=== PATIENT | male | born 1950 | race Caucasian/White ===

== ENCOUNTER 2016-06-29 09:14 | Inpatient (IN) ==
[2016-06-29] MEDS ORDERED: *HR* OxyCODONE/APAP 10/325 TABLET PO PRN (14:07)
[2016-06-29] MEDS ORDERED: ALPRAZolam 0.5 MG TABLET PO PRN (14:07)
[2016-06-29] MEDS ORDERED: (Roflumilast [Daliresp] 500 MCG) PO SCH (14:15)
[2016-06-29] MEDS ORDERED: *HR* Digoxin 0.25 MG TABLET PO SCH (14:15)
[2016-06-29] MEDS ORDERED: Nitroglycerin 0.4 MG TAB.SUBL SL PRN (14:15)
--- NOTE | 2016-06-29 14:19 | History & Physical Report ---
Date of Encounter: 06/29/16 Time of Encounter: 14:00 24 Hour HP Update - Instructions Instructions: If the History and Physical is less than 30 days old and was completed prior to A.M. admission and or procedure and has NOT been updated on calendar day of procedure please complete this update prior to performing procedure. - Update Patient reports changes in Medical Condition: No Changes in examination, assessment, or condition: No Changes in Medication: No Additions to current History and Physical: Presented for antiarrhythmic therapy initiation - Pre-Operative Checklist Home Medications Include Beta Sima: Yes Beta Sima Taken Today (Day of Surgery): No - Attending Attestation Please see OV note by Dr. Shawn Moreno on 06/21/16 for H&P.Presents for sotalol therapy. Discussed with Dr. Macario Gonzalez. Start sotalol 40 mg q12 hr. Hold metoprolol d/t HR in the 50's at times.
[2016-06-29] MEDS ORDERED: Naloxone 0.4 MG/ML INJ IVP PRN (14:20)
[2016-06-29 15:33] LABS: BUN/Creatinine Ratio 11 (6-26); Blood Urea Nitrogen 11 mg/dL (8-26); Calcium 9.2 mg/dL (8.6-10.8); Carbon Dioxide 30 mEq/L (19-29); Chloride 97 mEq/L (98-109); Glucose 289 mg/dL (70-99); Osmolality,Calculated 290 (280-300); Potassium 4.2 mEq/L (3.5-4.5); Sodium 135 mEq/L (136-145); eGFR For African Americans > 60 (> 60); eGFR For Non-African Americans > 60 (> 60)
[2016-06-29] MEDS ORDERED: Dextrose Gel 15 GM PO PRN ×2 (16:13)
[2016-06-29] MEDS ORDERED: D5% in Water 1,000 ML IVC PRN (16:13)
[2016-06-29] MEDS ORDERED: *HR* Dextrose 50 % in Water (Syg) 50 ML SYRINGE IVP PRN (16:13)
[2016-06-29] MEDS: *HR* Metformin 500 MG TABLET PO SCH (16:41)
[2016-06-29] MEDS: *HR* SitaGLIPtin 100 MG TABLET PO SCH (16:41)
[2016-06-29] MEDS: Furosemide 40 MG TABLET PO SCH (16:42)
[2016-06-29] MEDS: Aspirin Enteric Coated 81 MG Tablet PO SCH (16:42)
[2016-06-29] MEDS: Finasteride 5 MG TABLET PO SCH (16:42)
[2016-06-29] MEDS: *HR* Rivaroxaban 10 MG TABLET PO SCH (16:42)
[2016-06-29] MEDS: Gabapentin 300 MG CAPSULE PO SCH ×2 (16:42→22:06)
[2016-06-29] MEDS: Celecoxib 200 MG CAPSULE PO SCH ×2 (16:43→22:06)
[2016-06-29] MEDS: Ranolazine 500 MG TAB.ER.12H PO SCH ×2 (16:43→22:06)
[2016-06-29] MEDS: Ipratropium/Albuterol Neb 3 ML IH SCH ×3 (16:54→23:32)
[2016-06-29] MEDS: (Umeclidinium Bromide [Incruse Ellipta] 1 PUFF) IH SCH (17:06)
[2016-06-29 17:41] LABS: Bilirubin,Urine Negative (Negative); Blood,Urine Trace (Negative); Clarity,Urine Clear (Clear); Color,Urine Yellow (Yellow); Glucose,Urine (UA) >=1000 mg/dL (Normal); Ketones,Urine Negative (Negative); Leukocyte Esterase,Urine Negative (Negative); Nitrite,Urine Negative (Negative); Protein,Urine Negative (Neg-Trace); Specific Gravity,Urine 1.022 (1.010-1.025); Urobilinogen,Urine Normal (Normal)
[2016-06-29 17:43] LABS: Bacteria,Urine None Seen per hpf (None-Few); Hyaline Casts,Urine None Seen per lpf (None-Few); Squamous Epithelial Cell,Urine Moderate per lpf (None-Few); WBC,Urine 0-3 per hpf (0-3)
[2016-06-29] MEDS: Fluticasone Propionate Nasal 50 MCG/SPRAY BOTTLE NS SCH ×2 (19:50→22:07)
[2016-06-29] MEDS: Budesonide/Formoterol 160/4.5 MDI IH SCH (19:56)
[2016-06-29] MEDS: Insulin DETEMIR 100 UNIT/ML X5UNITS SQ SCH (22:06)
[2016-06-30] MEDS: Ipratropium/Albuterol Neb 3 ML IH SCH ×5 (03:52→19:45)
[2016-06-30] MEDS: Budesonide/Formoterol 160/4.5 MDI IH SCH ×2 (07:52→19:45)
[2016-06-30] MEDS: Furosemide 40 MG TABLET PO SCH (08:14)
[2016-06-30] MEDS: Ranolazine 500 MG TAB.ER.12H PO SCH ×2 (08:14→21:36)
[2016-06-30] MEDS: Gabapentin 300 MG CAPSULE PO SCH ×3 (08:14→21:41)
[2016-06-30] MEDS: Celecoxib 200 MG CAPSULE PO SCH ×2 (08:14→21:37)
[2016-06-30] MEDS: *HR* Rivaroxaban 10 MG TABLET PO SCH (08:14)
[2016-06-30] MEDS: Finasteride 5 MG TABLET PO SCH (08:14)
[2016-06-30] MEDS: *HR* Metformin 500 MG TABLET PO SCH ×2 (08:14→16:59)
[2016-06-30] MEDS: *HR* SitaGLIPtin 100 MG TABLET PO SCH (08:14)
[2016-06-30] MEDS: Aspirin Enteric Coated 81 MG Tablet PO SCH (08:14)
[2016-06-30] MEDS: (Umeclidinium Bromide [Incruse Ellipta] 1 PUFF) IH SCH (08:15)
[2016-06-30] MEDS: Fluticasone Propionate Nasal 50 MCG/SPRAY BOTTLE NS SCH ×2 (08:17→21:44)
[2016-06-30] MEDS ORDERED: (Roflumilast [Daliresp] 500 MCG) PO SCH (09:00)
[2016-06-30] MEDS: *HR* OxyCODONE/APAP 10/325 TABLET PO PRN ×2 (12:34→21:41)
--- NOTE | 2016-06-30 12:49 | Cardiology Progress Note ---
Date of Encounter: 06/30/16 Time of Encounter: 12:45 Assessment and Plan (1) PAF (paroxysmal atrial fibrillation) Current Visit: Yes Status: Acute Presented as direct admit for sotalol initiation by Dr. Macario Gonzalez. D/t occasional bradycardia seen, metoprolol and digoxin discontinued. Sotalol 40 mg BID started. Telemtry review shows NSR, Avg HR 83 bpm. One run of afib with slow ventricular response this morning. HR 40 bpm at that time. Currently HR in the 80's. Denies symptoms. Baseline EKG showed atrial fibrillation, HR 83 bpm, QT/QTc 36/402, QRS 117. AM EKG showed SR with non-specific t-wave abnormality. QT/QTC 397/429, [id number]. Received 2 doses. Plan for 5 monitored doses and discharge tomorrow evening if he remains in SR. He is currently on xarelto uninterrupted for one month. (2) CAD (coronary artery disease) Current Visit: No Status: Chronic S/p multiple PCI in the past. No cardiac symptoms currently. Most recent TTE 04/2016 LVEF 55-60%. Mildly dilated left ventricle. Not all segments were well visualized, but overall LV function appeared normal. Indeterminate diastolic function. Mildly dilated right ventricle with normal appearing function. . Moderate to severely dilated left atrium. Mild aortic regurgitation. No evidence of pulmonary hypertension identified. Continue asa, statin, and bb. Qualifiers: Coronary Disease-Associated Artery/Lesion type: [place] artery [place] vs. transplanted heart: [place] heart Associated angina: without angina Qualified Code(s): I25.10 - Atherosclerotic heart disease of [place] coronary artery without angina pectoris (3) Diabetes Current Visit: No Status: Chronic Continue home meds and hypoglycemia protocal. Qualifiers: Diabetes mellitus type: type 2 Diabetes mellitus complication status: without complication Diabetes mellitus intermediate insulin use: with intermediate teacher use Qualified Code(s): E11.9 - Type 2 diabetes mellitus without complications ; Z79.4 - retirement (current) use of insulin Discussion w patient/family: The assessment and plan as outlined above was discussed with the patient and/or family members who expressed understanding and agreement. All questions were answered. Thank you for involving us in the care of your patient. Please call with any questions. Subjective Principal diagnosis: PAF Interval history: No complaints. Resting comfortably in bed. Discussed right flank pain he c/o yesterday. He reports pain is chronic and he had it for over 20 years. Objective Vital Signs, Last 4 Hours Temp Pulse Resp BP Pulse Ox 06/30/16 12:30 84 131/76 06/30/16 11:59 98.0 F 89 17 96 06/30/16 11:39 83 06/30/16 10:59 17 93 General: Conversant, No Apparent Distress HEENT: Atraumatic, Normocephaly, Mucus Membranes Moist Neck: No JVD, Normal carotid pulses Cardiac: Reg Rate and Rhythm, Normal S1 and S2, No Murmur Lungs: Normal Breath Sounds, No Wheeze, Rales, Rhonchi Neuro: Alert and responsive, No focal deficits noted Abdomen: Soft, Non-Tender Skin: No rashes noted on visualized skin Musculoskeletal: No Chest Wall Tenderness Extremities: No Clubbing, No Cyanosis, No Edema, Normal Pulses, Other (BLE leg wraps in place) Results 06/29/16 15:12 Lab Results 06/29/16 06/29/16 15:12 17:33 Sodium 135 L Potassium 4.2 Chloride 97 L Carbon Dioxide 30 H BUN 11 Creatinine 0.99 Glucose 289 H Calcium 9.2 TSH 0.968 - EKG Interpretation EKG results cardiology: other (24 hour telemetry review shows NSR. one short episode of afib with slow ventricular response seen this morning. Avg HR 83 bpm. Min HR was 40 bpm at 0820 this morning. SB with PVC.) - VTE Reasons for not Prescribing Prophylaxis: Not indicated-Anticoagulated or INR therapeutic Consult Discharge Plan - Plan Referrals: Viridiana Garcia CNP [Primary Care Provider] - 07/09/16 8:45 am Jonny Armenta MD [Partnered Physician] - (cardiology office will call patient at home with an appointment)
--- NOTE | 2016-06-30 18:14 | Electrocardiograph Report ---
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
[2016-06-30] MEDS: Insulin DETEMIR 100 UNIT/ML X5UNITS SQ SCH (21:37)
[2016-06-30] MEDS: (Roflumilast [Daliresp] 500 MCG) PO SCH (21:44)
[2016-07-01] MEDS: Ipratropium/Albuterol Neb 3 ML IH SCH ×7 (00:02→22:28)
[2016-07-01] MEDS: *HR* Rivaroxaban 10 MG TABLET PO SCH (07:45)
[2016-07-01] MEDS: Aspirin Enteric Coated 81 MG Tablet PO SCH (07:45)
[2016-07-01] MEDS: Celecoxib 200 MG CAPSULE PO SCH ×2 (07:45→20:47)
[2016-07-01] MEDS: *HR* SitaGLIPtin 100 MG TABLET PO SCH (07:46)
[2016-07-01] MEDS: Furosemide 40 MG TABLET PO SCH (07:46)
[2016-07-01] MEDS: *HR* Metformin 500 MG TABLET PO SCH ×2 (07:46→17:10)
[2016-07-01] MEDS: Ranolazine 500 MG TAB.ER.12H PO SCH ×2 (07:46→20:47)
[2016-07-01] MEDS: Gabapentin 300 MG CAPSULE PO SCH ×3 (07:46→20:48)
[2016-07-01] MEDS: Finasteride 5 MG TABLET PO SCH (07:46)
[2016-07-01] MEDS: Fluticasone Propionate Nasal 50 MCG/SPRAY BOTTLE NS SCH ×2 (07:47→20:49)
[2016-07-01] MEDS: (Umeclidinium Bromide [Incruse Ellipta] 1 PUFF) IH SCH (07:49)
[2016-07-01] MEDS: Budesonide/Formoterol 160/4.5 MDI IH SCH ×2 (07:54→20:19)
[2016-07-01] MEDS: *HR* OxyCODONE/APAP 10/325 TABLET PO PRN (09:51)
--- NOTE | 2016-07-01 10:02 | Discharge Summary ---
Date of Encounter: 07/01/16 Time of Encounter: 09:55 - Discharge Diagnosis (1) PAF (paroxysmal atrial fibrillation) Priority: Primary Status: Acute Comments: Presented as direct admit for sotalol initiation by Dr. Macario Gonzalez. D/t occasional bradycardia seen, metoprolol and digoxin discontinued. Sotalol 40 mg BID started. Telemetry review shows NSR, Avg HR 85 bpm. No A-fib noted since yesterday morning. Currently HR in the 80's. Denies symptoms. Baseline EKG showed atrial fibrillation, HR 83 bpm, QT/QTc 36/402, QRS 117. AM EKG 06/30/16 showed SR QT/QTC 397/429, QRS 116. AM EKG 07/01/16 showed SR QT/QTc 388/418ms, QRS 107. Received 4 doses. Plan for 5 monitored doses and discharge this evening after 5th dose. He is currently on xarelto uninterrupted for one month. Follow-up as outpt in 2-3 weeks. (2) CAD (coronary artery disease) Priority: Primary Status: Chronic Comments: S/p multiple PCI in the past. No cardiac symptoms currently. Most recent TTE 04/2016 LVEF 55-60%. Mildly dilated left ventricle. Not all segments were well visualized, but overall LV function appeared normal. Indeterminate diastolic function. Mildly dilated right ventricle with normal appearing function. . Moderate to severely dilated left atrium. Mild aortic regurgitation. No evidence of pulmonary hypertension identified. Continue asa, statin, and bb. Qualifiers: Coronary Disease-Associated Artery/Lesion type: [place] artery [place] vs. transplanted heart: [place] heart Associated angina: without angina Qualified Code(s): I25.10 - Atherosclerotic heart disease of [place] coronary artery without angina pectoris - Discharge Medications Prescriptions: Sotalol [Betapace] 40 mg PO Q12H #30 tablet Home Medications: Albuterol Sulfate [Albuterol Inhaler] 2 puff IH Q4HR PRN 10/19/14 [History] Alprazolam [Xanax] 0.5 mg PO BID 10/19/14 [History] Aspirin Enteric Coated [Aspirin EC] 81 mg PO DAILY 10/19/14 [History] Docusate [Colace] 100 mg PO BID 10/19/14 [History] Dutasteride [Avodart] 0.5 mg PO DAILY 10/19/14 [History] Esomeprazole Magnesium [Nexium] 40 mg PO DAILY 10/19/14 [History] Gabapentin [Neurontin] 600 mg PO TID 10/19/14 [History] Ipratropium/Albuterol Neb [Duoneb] 3 ml IH Q4HR 10/19/14 [History] Lidocaine Jelly 2% 1 appl MM ONCE 10/19/14 [History] Metformin [Glucophage] 1,000 mg PO BIDWM 10/19/14 [History] Montelukast [Singulair] 10 mg PO DAILY 10/19/14 [History] Nitroglycerin 0.4 mg SL Q5MIN 10/19/14 [History] OxyCODONE/APAP 10/325 [Percocet 10/325] 1 mg PO Q6-8H PRN 10/19/14 [History] Roflumilast [Daliresp] 500 mcg PO DAILY 10/19/14 [History] Rosuvastatin [Crestor] 40 mg PO HS 10/19/14 [History] SitaGLIPtin [Januvia] 100 mg PO DAILY 10/19/14 [History] Celecoxib [Celebrex] 200 mg PO BID 08/30/15 [History] Ranolazine [Ranexa] 500 mg PO BID 08/30/15 [History] Fluticasone Propionate Nasal [Flonase] 1 spray NS BID 01/24/16 [History] Fluticasone/Salmeterol [Advair 500-50 Diskus] 1 puff IH BID 01/24/16 [History] Varenicline Tartrate [Chantix] 1 mg PO BID 01/24/16 [History] Cyclobenzaprine [Flexeril] 10 mg PO TID 06/29/16 [History] Furosemide [Lasix] 40 mg PO DAILY 06/29/16 [History] Insulin DETEMIR [Levemir Flextouch] 20 unit SQ HS 06/29/16 [History] Potassium Chloride [Klor-Con 10] 10 meq PO DAILY 06/29/16 [History] Rivaroxaban [Xarelto] 20 mg PO DAILY 06/29/16 [History] Umeclidinium [place] [Incruse Ellipta] 1 puff IH DAILY 06/29/16 [History] Sotalol [Betapace] 40 mg PO Q12H #30 tablet 07/01/16 [Rx] Allergies/Adverse Reactions: Allergies ciprofloxacin [From Cipro] Allergy (Verified 01/24/16 12:10) Hives levofloxacin [From Levaquin] Allergy (Verified 01/24/16 12:10) Blister sulfamethoxazole [From Bactrim] Allergy (Verified 01/24/16 12:10) Hives trimethoprim [From Bactrim] Allergy (Verified 01/24/16 12:10) Hives Procedures/tests Complete & Pending: Procedures Performed prior 72 hours Category Date Time Status ECG 12 lead ECG [ECG] AM 0600 Y 07/02/16 06:00 Ordered ECG 12 lead ECG [ECG] Routine Y 06/30/16 06:00 Completed ECG 12 lead ECG [ECG] Stat Y 06/29/16 11:56 Completed Date of admission: 06/29/16 11:27 Primary care physician: Viridiana Garcia CNP Consults: 06/29/16 17:05 Consult to Wound Care [CONS] Routine Reason for Consult: BLE leg wraps applied by wound care [facility] one week ago. Please help manage. Thanks Call Completed: No Discharging clinician: Jorge Bertrand Anticipated date of discharge: 07/01/16 - Patient Status Disposition: Home, Self-Care Condition: Good Functional capacity at discharge: independent ambulation Overall status at discharge: patient is back to baseline - Discharge Instructions Follow Up With: Viridiana Garcia CNP [Primary Care Provider] - 07/09/16 8:45 am Jonny Armenta MD [Partnered Physician] - (cardiology office will call patient at home with an appointment) - Diet and Activity Activity: increase activity as tolerated Diet: advance to your usual diet - Hospital Course Hospital course: Mr. Pugh is a 65 year old male that presented as direct admit for sotalol initiation by Dr. Macario Gonzalez. D/t occasional bradycardia seen, metoprolol and digoxin discontinued. Sotalol 40 mg BID started. Telemetry review shows NSR, Avg HR 85 bpm. No A-fib noted since yesterday morning. Currently HR in the 80's. Baseline EKG showed atrial fibrillation, HR 83 bpm, QT/QTc 36/402, QRS 117. AM EKG 06/30/16 showed SR QT/QTC 397/429, QRS 116. AM EKG 07/01/16 showed SR QT/QTc 388/418ms, QRS 107. Received 4 doses. Plan for 5 monitored doses and discharge this evening after 5th dose. He is currently on xarelto uninterrupted for one month. Follow-up as outpt in 2-3 weeks. - Time Spent with Patient Total time spent providing and/or coordinating discharge services: 30 minutes Physical Examination Vital Signs, Last 4 Hours Temp Pulse Resp BP Pulse Ox 07/01/16 07:53 98.0 F 75 18 132/74 99 07/01/16 07:50 16 132/74 97 07/01/16 07:40 77 19 132/74 97 Vital Signs Temp Pulse Resp BP Pulse Ox 07/01/16 07:53 98.0 F 75 18 132/74 99 07/01/16 07:50 16 132/74 97 07/01/16 07:40 77 19 132/74 97 07/01/16 04:58 16 94 07/01/16 04:46 97.8 F 88 18 138/85 95 07/01/16 03:57 82 07/01/16 00:36 97.8 F 80 18 151/79 93 06/30/16 23:45 87 06/30/16 21:05 98.4 F 87 18 157/82 95 06/30/16 21:00 87 06/30/16 19:45 18 96 06/30/16 17:23 97.8 F 87 17 141/77 94 06/30/16 15:46 16 95 06/30/16 15:30 87 06/30/16 12:30 84 131/76 06/30/16 11:59 98.0 F 89 17 96 06/30/16 11:39 83 06/30/16 10:59 17 93 Intake and Output 06/30/16 07/01/16 07/01/16 23:59 07:59 15:59 Intake Total 420 / 420 0 / 0 240 / 240 Output Total 1300 / 1300 0 / 0 0 / 0 Balance -880 / -880 0 / 0 240 / 240 Intake: Oral 420 / 420 0 / 0 240 / 240 Output: Urine 1300 / 1300 0 / 0 0 / 0 Other: Meal Dinner Breakfast Percent of Meal Consumed 100% 100% Weight 149 kg Blood Glucose* 277 195 Patient Weight 07/01/16 23:59 Weight 149 kg General: Conversant, No Apparent Distress HEENT: Atraumatic, Normocephaly, Mucus Membranes Moist Neck: No JVD, Normal carotid pulses Cardiac: Reg Rate and Rhythm, Normal S1 and S2, No Murmur Lungs: Normal Breath Sounds, No Wheeze, Rales, Rhonchi Neuro: Alert and responsive, No focal deficits noted Abdomen: Soft, Non-Tender Skin: No rashes noted on visualized skin Musculoskeletal: No Chest Wall Tenderness Extremities: No Clubbing, No Cyanosis, No Edema, Normal Pulses - VTE Reasons for not Prescribing Prophylaxis: Not indicated-Anticoagulated or INR therapeutic
--- NOTE | 2016-07-01 19:21 | Electrocardiograph Report ---
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
[2016-07-01] MEDS: Insulin DETEMIR 100 UNIT/ML X5UNITS SQ SCH (20:48)
[2016-07-01] MEDS: (Roflumilast [Daliresp] 500 MCG) PO SCH (20:49)
[2016-07-02] MEDS: Ipratropium/Albuterol Neb 3 ML IH SCH ×6 (03:31→23:39)
[2016-07-02] MEDS: Budesonide/Formoterol 160/4.5 MDI IH SCH ×2 (08:37→20:09)
[2016-07-02] MEDS: Aspirin Enteric Coated 81 MG Tablet PO SCH (09:05)
[2016-07-02] MEDS: Celecoxib 200 MG CAPSULE PO SCH ×2 (09:05→21:30)
[2016-07-02] MEDS: *HR* Metformin 500 MG TABLET PO SCH ×2 (09:05→16:52)
[2016-07-02] MEDS: Furosemide 40 MG TABLET PO SCH (09:08)
[2016-07-02] MEDS: Gabapentin 300 MG CAPSULE PO SCH ×3 (09:08→21:30)
[2016-07-02] MEDS: *HR* SitaGLIPtin 100 MG TABLET PO SCH (09:08)
[2016-07-02] MEDS: Ranolazine 500 MG TAB.ER.12H PO SCH ×2 (09:10→21:30)
[2016-07-02] MEDS: Finasteride 5 MG TABLET PO SCH (09:10)
[2016-07-02] MEDS: *HR* Rivaroxaban 10 MG TABLET PO SCH (09:11)
[2016-07-02] MEDS: Fluticasone Propionate Nasal 50 MCG/SPRAY BOTTLE NS SCH ×2 (10:49→21:31)
[2016-07-02] MEDS: (Umeclidinium Bromide [Incruse Ellipta] 1 PUFF) IH SCH (10:53)
--- NOTE | 2016-07-02 12:57 | Cardiology Progress Note ---
Date of Encounter: 07/02/16 Time of Encounter: 12:55 Assessment and Plan (1) PAF (paroxysmal atrial fibrillation) Current Visit: Yes Status: Acute Presented as direct admit for sotalol initiation by Dr. Macario Gonzalez. D/t occasional bradycardia seen, metoprolol and digoxin discontinued. Sotalol 40 mg BID started. Prior to 5th dose pt went back into A-Fib yesterday afternoon. Has maintained A-Fib/Flutter overnight. Increased Sotalol to 80mg BID. Has received 2 increased doses. QTc remains <500ms. He is currently on xarelto uninterrupted for one month. Needs to be monitored to for 5 doses of increased dose. If converts to SR, plan for D/C tomorrow afternoon. If he does not convert, plan for DCCV on Tuesday. No LUPILLO necessary. (2) CAD (coronary artery disease) Current Visit: No Status: Chronic S/p multiple PCI in the past. No cardiac symptoms currently. Most recent TTE 04/2016 LVEF 55-60%. Mildly dilated left ventricle. Not all segments were well visualized, but overall LV function appeared normal. Indeterminate diastolic function. Mildly dilated right ventricle with normal appearing function. . Moderate to severely dilated left atrium. Mild aortic regurgitation. No evidence of pulmonary hypertension identified. Continue asa, statin, and bb. Qualifiers: Coronary Disease-Associated Artery/Lesion type: [place] artery [place] vs. transplanted heart: [place] heart Associated angina: without angina Qualified Code(s): I25.10 - Atherosclerotic heart disease of [place] coronary artery without angina pectoris Discussion w patient/family: The assessment and plan as outlined above was discussed with the patient and/or family members who expressed understanding and agreement. All questions were answered. Thank you for involving us in the care of your patient. Please call with any questions. I will discuss all the above with Dr. Armenta and make changes as necessary. Subjective Principal diagnosis: PAF Interval history: Pt went into A-Fib yesterday afternoon. He denies any acute complaints. Sotalol dose increased from 40mg to 80mg BID. Has received 2 doses of 80mg. Remains in A -Fib. QTc remains <500ms. Objective Vital Signs, Last 4 Hours Temp Pulse Resp BP Pulse Ox 07/02/16 11:39 105 07/02/16 10:55 97.4 F L 106 16 123/78 94 07/02/16 08:58 77 Vital Signs Temp Pulse Resp BP Pulse Ox 07/02/16 11:39 105 07/02/16 10:55 97.4 F L 106 16 123/78 94 07/02/16 08:58 77 07/02/16 08:23 97.2 F L 77 16 108/89 95 07/02/16 04:18 97.2 F L 86 14 118/80 95 07/02/16 03:55 95 07/02/16 03:33 18 92 07/01/16 23:43 97.2 F L 88 16 119/77 93 07/01/16 23:05 103 07/01/16 22:30 18 91 07/01/16 19:50 97.9 F 98 16 120/87 96 07/01/16 16:57 98.0 F 106 18 128/67 93 07/01/16 16:05 98 18 93 Intake and Output 07/01/16 07/02/16 07/02/16 23:59 07:59 15:59 Intake Total 840 / 840 200 / 200 200 / 200 Output Total 0 / 0 900 / 900 400 / 400 Balance 840 / 840 -700 / -700 -200 / -200 Intake: Oral 840 / 840 200 / 200 200 / 200 Output: Urine 0 / 0 900 / 900 400 / 400 Other: # Voids 1 Weight 148.4 kg Blood Glucose* 196 304 Patient Weight 07/02/16 23:59 Weight 148.4 kg General: Conversant HEENT: Atraumatic, Normocephaly, Mucus Membranes Moist Neck: No JVD, Normal carotid pulses Cardiac: Other (irregularly irregular) Lungs: Normal Breath Sounds, No Wheeze, Rales, Rhonchi Neuro: Alert and responsive, No focal deficits noted Abdomen: Soft, Non-Tender Skin: No rashes noted on visualized skin Musculoskeletal: No Chest Wall Tenderness Extremities: No Clubbing, No Cyanosis, No Edema, Normal Pulses Results 06/29/16 15:12 Active Medications Albuterol Sulfate (Albuterol Inhaler) 2 puff IH Q4HR PRN PRN Reason: Shortness Of Breath Stop: 12/29/16 14:08 Albuterol/Ipratropium (Duoneb) 3 ml IH [id number] IRVIN PRN Reason: Protocol Stop: 12/29/16 16:01 Last Admin: 07/02/16 12:01 Dose: Not Given Alprazolam (Xanax) 0.5 mg PO BID PRN; Protocol PRN Reason: Anxiety Stop: 12/29/16 14:08 Last Admin: 07/01/16 20:48 Dose: 0.5 mg Aspirin (Aspirin Ec) 81 mg PO DAILY [facility] Stop: 12/29/16 14:16 Last Admin: 07/02/16 09:05 Dose: 81 mg Budesonide/Formoterol Fumarate (Symbicort) 2 puff IH BIDR IRVIN Stop: 12/29/16 22:01 Last Admin: 07/02/16 08:37 Dose: 2 puff Celecoxib (Celebrex) 200 mg PO BID [facility] Stop: 12/29/16 14:16 Last Admin: 07/02/16 09:05 Dose: 200 mg Cyclobenzaprine HCl (Flexeril) 10 mg PO TID [facility] Stop: 12/29/16 15:01 Last Admin: 07/02/16 09:06 Dose: 10 mg Dextrose/Water (Dextrose 50% (Syg)) 25 ml IVP AD PRN PRN Reason: Hypoglycemia Stop: 12/29/16 16:14 Docusate Sodium (Colace) 100 mg PO BID IRVIN PRN Reason: Protocol Stop: 12/29/16 14:16 Last Admin: 07/02/16 09:06 Dose: 100 mg Finasteride (Proscar) 5 mg PO DAILY [facility] Stop: 12/29/16 14:16 Last Admin: 07/02/16 09:10 Dose: 5 mg Fluticasone Propionate (Flonase) 50 mcg NS BID IRVIN PRN Reason: Protocol Stop: 12/29/16 14:16 Last Admin: 07/02/16 10:49 Dose: 50 mcg Furosemide (Lasix) 40 mg PO DAILY [facility] Stop: 12/29/16 14:16 Last Admin: 07/02/16 09:08 Dose: 40 mg Gabapentin (Neurontin) 600 mg PO TID [facility] Stop: 12/29/16 15:01 Last Admin: 07/02/16 09:08 Dose: 600 mg Glucagon (Glucagen) 1 mg IM ONCE PRN PRN Reason: Hypoglycemia Stop: 12/29/16 16:14 Glucose (Gluctose) 15 gm PO ONCE PRN PRN Reason: Hypoglycemia Stop: 12/29/16 16:14 Glucose (Gluctose) 30 gm PO ONCE PRN PRN Reason: Hypoglycemia Stop: 12/29/16 16:14 Dextrose (Dextrose 5%) 1,000 mls @ 100 mls/hr IVC .Q10H PRN PRN Reason: HYPOGLYCEMIA Stop: 12/29/16 16:14 Insulin Detemir (Levemir) 20 unit SQ HS IRVIN Stop: 12/29/16 21:01 Last Admin: 07/01/16 20:48 Dose: 20 unit Metformin HCl (Glucophage) 1,000 mg PO BIDWM IRVIN PRN Reason: Protocol Stop: 12/29/16 17:01 Last Admin: 07/02/16 09:05 Dose: 1,000 mg Montelukast Sodium (Singulair) 10 mg PO DAILY IRVIN Stop: 12/29/16 14:16 Last Admin: 07/02/16 09:11 Dose: 10 mg Naloxone HCl (Narcan) 0.4 mg IVP Q2MIN PRN PRN Reason: Opioid Reversal Stop: 12/29/16 14:21 Nitroglycerin (Nitroglycerin) 0.4 mg SL Q5MIN PRN PRN Reason: CHEST PAIN Stop: 12/29/16 14:16 Omeprazole (Prilosec) 40 mg PO DAILY [facility] Stop: 12/29/16 14:16 Last Admin: 07/02/16 09:10 Dose: 40 mg Oxycodone/Acetaminophen (Percocet 10/325) 1 each PO Q6HR PRN PRN Reason: Pain Stop: 12/29/16 19:38 Last Admin: 07/01/16 09:51 Dose: 1 each Pharmacy Profile Note (Patient Taking Own Medication) 0 each PO 2200 IRVIN Stop: 12/30/16 09:01 Last Admin: 07/01/16 20:49 Dose: 1 each Pharmacy Profile Note (Patient Taking Own Medication) 0 each IH DAILY IRVIN Stop: 12/29/16 14:16 Last Admin: 07/02/16 10:53 Dose: Not Given Potassium Chloride (Potassium Chloride) 10 meq PO DAILY IRVIN Stop: 12/29/16 14:16 Last Admin: 07/02/16 09:09 Dose: 10 meq Ranolazine (Ranexa) 500 mg PO BID IRVIN Stop: 12/29/16 14:16 Last Admin: 07/02/16 09:10 Dose: 500 mg Rivaroxaban (Xarelto) 20 mg PO DAILY [facility] Stop: 12/29/16 14:16 Last Admin: 07/02/16 09:11 Dose: 20 mg Rosuvastatin Calcium (Crestor) 40 mg PO HS [facility] Stop: 12/29/16 21:01 Last Admin: 07/01/16 20:47 Dose: 40 mg Sitagliptin Phosphate (Januvia) 100 mg PO DAILY [facility] Stop: 12/29/16 14:16 Last Admin: 07/02/16 09:08 Dose: 100 mg Sotalol HCl (Betapace) 80 mg PO Q12H IRVIN Stop: 12/31/16 17:01 Last Admin: 07/02/16 05:06 Dose: 80 mg - EKG Interpretation EKG results cardiology: other (24 hour tele AVG HR 95, A-Fib/Flutter. No bradycardic events or pauses.) - VTE Reasons for not Prescribing Prophylaxis: Not indicated-Anticoagulated or INR therapeutic Consult Discharge Plan - Plan Instructions: Sotalol (By mouth), Atrial Fibrillation (GEN) Referrals: Viridiana Garcia CNP [Primary Care Provider] - 07/09/16 8:45 am Macario Gonzalez MD [Partnered Physician] - 07/21/16 12:45 pm Prescriptions: Sotalol [Betapace] 40 mg PO Q12H #30 tablet
[2016-07-02 13:38] LABS: BUN/Creatinine Ratio 12 (6-26); Blood Urea Nitrogen 16 mg/dL (8-26); Calcium 9.3 mg/dL (8.6-10.8); Carbon Dioxide 34 mEq/L (19-29); Chloride 94 mEq/L (98-109); Glucose 261 mg/dL (70-99); Osmolality,Calculated 298 (280-300); Sodium 139 mEq/L (136-145); eGFR For African Americans > 60 (> 60); eGFR For Non-African Americans 55 (> 60)
[2016-07-02] MEDS: *HR* OxyCODONE/APAP 10/325 TABLET PO PRN (21:30)
[2016-07-02] MEDS: Insulin DETEMIR 100 UNIT/ML X5UNITS SQ SCH (21:31)
[2016-07-02] MEDS: (Roflumilast [Daliresp] 500 MCG) PO SCH (21:32)
[2016-07-03] MEDS: Ipratropium/Albuterol Neb 3 ML IH SCH ×4 (04:02→16:07)
[2016-07-03] MEDS: *HR* Metformin 500 MG TABLET PO SCH ×2 (07:53→16:29)
[2016-07-03] MEDS: Gabapentin 300 MG CAPSULE PO SCH ×2 (07:53→15:14)
[2016-07-03] MEDS: *HR* SitaGLIPtin 100 MG TABLET PO SCH (07:53)
[2016-07-03] MEDS: Ranolazine 500 MG TAB.ER.12H PO SCH (07:53)
[2016-07-03 07:54] VITALS: BP 107/83
[2016-07-03] MEDS: *HR* Rivaroxaban 10 MG TABLET PO SCH (07:54)
[2016-07-03] MEDS: Furosemide 40 MG TABLET PO SCH (07:54)
[2016-07-03] MEDS: Fluticasone Propionate Nasal 50 MCG/SPRAY BOTTLE NS SCH (07:54)
[2016-07-03] MEDS: Celecoxib 200 MG CAPSULE PO SCH (07:54)
[2016-07-03] MEDS: Finasteride 5 MG TABLET PO SCH (07:54)
[2016-07-03] MEDS: Aspirin Enteric Coated 81 MG Tablet PO SCH (07:54)
[2016-07-03] MEDS: (Umeclidinium Bromide [Incruse Ellipta] 1 PUFF) IH SCH (07:55)
[2016-07-03] MEDS: Budesonide/Formoterol 160/4.5 MDI IH SCH (08:48)
--- NOTE | 2016-07-03 09:00 | Cardiology Progress Note ---
Date of Encounter: 07/03/16 Time of Encounter: 08:58 Assessment and Plan (1) PAF (paroxysmal atrial fibrillation) Current Visit: Yes Status: Acute Presented as direct admit for sotalol initiation by Dr. Macario Gonzalez. D/t occasional bradycardia seen, metoprolol and digoxin discontinued. Sotalol 40 mg BID started. Prior to 5th dose pt went back into A-Fib, Increased Sotalol to 80mg BID. Has received 4 increased doses. QTc remains <500ms. He is currently on xarelto uninterrupted for one month. Needs to be monitored to for 5 doses of increased dose. Was A-Fib overnight, PAF this AM, currently SR. Creatinine increased to 1.31. Creatinine clearance 115. Continue Sotalol. Plan for discharge home this evening after 5th dose. Check BMP as outpt in 1 week. Follow-up in 2-[address] Macario Gonzalez. (2) CAD (coronary artery disease) Current Visit: No Status: Chronic S/p multiple PCI in the past. No cardiac symptoms currently. Most recent TTE 04/2016 LVEF 55-60%. Mildly dilated left ventricle. Not all segments were well visualized, but overall LV function appeared normal. Indeterminate diastolic function. Mildly dilated right ventricle with normal appearing function. . Moderate to severely dilated left atrium. Mild aortic regurgitation. No evidence of pulmonary hypertension identified. Continue asa, statin, and bb. Qualifiers: Coronary Disease-Associated Artery/Lesion type: [place] artery [place] vs. transplanted heart: [place] heart Associated angina: without angina Qualified Code(s): I25.10 - Atherosclerotic heart disease of [place] coronary artery without angina pectoris (3) THUY (acute kidney injury) Current Visit: Yes Status: Acute Creatinine went from 0.99 to 1.31. Mild THUY. Creatinine clearance 115. Continue Sotalol. Check BMP as outpt. Discussion w patient/family: The assessment and plan as outlined above was discussed with the patient and/or family members who expressed understanding and agreement. All questions were answered. Thank you for involving us in the care of your patient. Please call with any questions. I will discuss all the above with Dr. Armenta and make changes as necessary. Subjective Principal diagnosis: PAF Interval history: Pt was A-Fib overnight, PAF this AM, currently in SR. He denies any acute complaints. Sotalol dose increased from 40mg to 80mg BID. Has received 4 doses of 80mg. QTc remains <500ms. Objective Vital Signs, Last 4 Hours Temp Pulse Resp BP Pulse Ox 07/03/16 08:53 16 98 07/03/16 07:48 98.0 F 88 16 107/83 95 07/03/16 07:28 94 Vital Signs Temp Pulse Resp BP Pulse Ox 07/03/16 08:53 16 98 07/03/16 07:48 98.0 F 88 16 107/83 95 07/03/16 07:28 94 07/03/16 04:55 97.4 F L 98 16 119/90 93 07/03/16 04:02 18 93 07/02/16 23:39 16 98 07/02/16 23:29 97.7 F 106 16 98/70 92 07/02/16 20:09 16 94 07/02/16 19:49 98.4 F 92 18 113/67 95 07/02/16 19:40 95 07/02/16 16:42 98.4 F 95 22 108/70 95 07/02/16 15:29 16 94 07/02/16 15:00 95 07/02/16 11:39 105 07/02/16 10:55 97.4 F L 106 16 123/78 94 Intake and Output 07/02/16 07/03/16 07/03/16 23:59 07:59 15:59 Intake Total 100 / 100 830 / 830 Output Total 700 / 700 250 / 250 Balance -600 / -600 580 / 580 Intake: Oral 100 / 100 830 / 830 Output: Urine 700 / 700 250 / 250 Other: Weight 148.9 kg Blood Glucose* 152 193 Patient Weight 07/03/16 23:59 Weight 148.9 kg General: Conversant, No Apparent Distress HEENT: Atraumatic, Normocephaly, Mucus Membranes Moist Neck: No JVD, Normal carotid pulses Cardiac: Other (irregularly irregular) Lungs: Normal Breath Sounds, No Wheeze, Rales, Rhonchi Neuro: Alert and responsive, No focal deficits noted Abdomen: Soft, Non-Tender Skin: No rashes noted on visualized skin Musculoskeletal: No Chest Wall Tenderness Extremities: No Clubbing, No Cyanosis, No Edema, Normal Pulses Results 07/02/16 13:18 Lab Results 07/02/16 13:18 Sodium 139 Potassium 4.0 Chloride 94 L Carbon Dioxide 34 H BUN 16 Creatinine 1.31 H Glucose 261 H Calcium 9.3 BMP 07/02/16 Range/Units 13:18 Sodium 139 (136-145) mEq/L Potassium 4.0 (3.5-4.5) mEq/L Chloride 94 L (98-109) mEq/L Carbon Dioxide 34 H (19-29) mEq/L BUN 16 (8-26) mg/dL Creatinine 1.31 H (0.72-1.25) mg/dL Glucose 261 H (70-99) mg/dL Calcium 9.3 (8.6-10.8) mg/dL Active Medications Albuterol Sulfate (Albuterol Inhaler) 2 puff IH Q4HR PRN PRN Reason: Shortness Of Breath Stop: 12/29/16 14:08 Albuterol/Ipratropium (Duoneb) 3 ml IH [id number] IRVIN PRN Reason: Protocol Stop: 12/29/16 16:01 Last Admin: 07/03/16 08:48 Dose: 3 ml Alprazolam (Xanax) 0.5 mg PO BID PRN; Protocol PRN Reason: Anxiety Stop: 12/29/16 14:08 Last Admin: 07/01/16 20:48 Dose: 0.5 mg Aspirin (Aspirin Ec) 81 mg PO DAILY [facility] Stop: 12/29/16 14:16 Last Admin: 07/03/16 07:54 Dose: 81 mg Budesonide/Formoterol Fumarate (Symbicort) 2 puff IH BIDR [facility] Stop: 12/29/16 22:01 Last Admin: 07/03/16 08:48 Dose: 2 puff Celecoxib (Celebrex) 200 mg PO BID [facility] Stop: 12/29/16 14:16 Last Admin: 07/03/16 07:54 Dose: 200 mg Cyclobenzaprine HCl (Flexeril) 10 mg PO TID [facility] Stop: 12/29/16 15:01 Last Admin: 07/03/16 07:54 Dose: 10 mg Dextrose/Water (Dextrose 50% (Syg)) 25 ml IVP AD PRN PRN Reason: Hypoglycemia Stop: 12/29/16 16:14 Docusate Sodium (Colace) 100 mg PO BID IRVIN PRN Reason: Protocol Stop: 12/29/16 14:16 Last Admin: 07/03/16 07:54 Dose: 100 mg Finasteride (Proscar) 5 mg PO DAILY [facility] Stop: 12/29/16 14:16 Last Admin: 07/03/16 07:54 Dose: 5 mg Fluticasone Propionate (Flonase) 50 mcg NS BID IRVIN PRN Reason: Protocol Stop: 12/29/16 14:16 Last Admin: 07/03/16 07:54 Dose: 50 mcg Furosemide (Lasix) 40 mg PO DAILY [facility] Stop: 12/29/16 14:16 Last Admin: 07/03/16 07:54 Dose: 40 mg Gabapentin (Neurontin) 600 mg PO TID [facility] Stop: 12/29/16 15:01 Last Admin: 07/03/16 07:53 Dose: 600 mg Glucagon (Glucagen) 1 mg IM ONCE PRN PRN Reason: Hypoglycemia Stop: 12/29/16 16:14 Glucose (Gluctose) 15 gm PO ONCE PRN PRN Reason: Hypoglycemia Stop: 12/29/16 16:14 Glucose (Gluctose) 30 gm PO ONCE PRN PRN Reason: Hypoglycemia Stop: 12/29/16 16:14 Dextrose (Dextrose 5%) 1,000 mls @ 100 mls/hr IVC .Q10H PRN PRN Reason: HYPOGLYCEMIA Stop: 12/29/16 16:14 Insulin Detemir (Levemir) 20 unit SQ HS [facility] Stop: 12/29/16 21:01 Last Admin: 07/02/16 21:31 Dose: 20 unit Metformin HCl (Glucophage) 1,000 mg PO BIDWM IRVIN PRN Reason: Protocol Stop: 12/29/16 17:01 Last Admin: 07/03/16 07:53 Dose: 1,000 mg Montelukast Sodium (Singulair) 10 mg PO DAILY [facility] Stop: 12/29/16 14:16 Last Admin: 07/03/16 07:53 Dose: 10 mg Naloxone HCl (Narcan) 0.4 mg IVP Q2MIN PRN PRN Reason: Opioid Reversal Stop: 12/29/16 14:21 Nitroglycerin (Nitroglycerin) 0.4 mg SL Q5MIN PRN PRN Reason: CHEST PAIN Stop: 12/29/16 14:16 Omeprazole (Prilosec) 40 mg PO DAILY [facility] Stop: 12/29/16 14:16 Last Admin: 07/03/16 07:54 Dose: 40 mg Oxycodone/Acetaminophen (Percocet 10/325) 1 each PO Q6HR PRN PRN Reason: Pain Stop: 12/29/16 19:38 Last Admin: 07/02/16 21:30 Dose: 1 each Pharmacy Profile Note (Patient Taking Own Medication) 0 each PO 2200 IRV[facility] Stop: 12/30/16 09:01 Last Admin: 07/02/16 21:32 Dose: 1 each Pharmacy Profile Note (Patient Taking Own Medication) 0 each IH DAILY [facility] Stop: 12/29/16 14:16 Last Admin: 07/03/16 07:55 Dose: 1 each Potassium Chloride (Potassium Chloride) 10 meq PO DAILY [facility] Stop: 12/29/16 14:16 Last Admin: 07/03/16 07:54 Dose: 10 meq Ranolazine (Ranexa) 500 mg PO BID [facility] Stop: 12/29/16 14:16 Last Admin: 07/03/16 07:53 Dose: 500 mg Rivaroxaban (Xarelto) 20 mg PO DAILY [facility] Stop: 12/29/16 14:16 Last Admin: 07/03/16 07:54 Dose: 20 mg Rosuvastatin Calcium (Crestor) 40 mg PO HS [facility] Stop: 12/29/16 21:01 Last Admin: 07/02/16 21:30 Dose: 40 mg Sitagliptin Phosphate (Januvia) 100 mg PO DAILY [facility] Stop: 12/29/16 14:16 Last Admin: 07/03/16 07:53 Dose: 100 mg Sotalol HCl (Betapace) 80 mg PO Q12H [facility] Stop: 12/31/16 17:01 Last Admin: 07/03/16 04:58 Dose: 80 mg - EKG Interpretation EKG results cardiology: other (24 hour tele AVG HR 94, A-Fib) - VTE Reasons for not Prescribing Prophylaxis: Not indicated-Anticoagulated or INR therapeutic Consult Discharge Plan - Plan Instructions: Sotalol (By mouth), Atrial Fibrillation (GEN) Referrals: Viridiana Garcia CNP [Primary Care Provider] - 07/09/16 8:45 am Macario Gonzalez MD [Partnered Physician] - 07/21/16 12:45 pm Prescriptions: Sotalol [Betapace] 40 mg PO Q12H #30 tablet
--- NOTE | 2016-07-03 09:46 | Discharge Summary ---
Date of Encounter: 07/03/16 Time of Encounter: 09:46 - Discharge Diagnosis (1) PAF (paroxysmal atrial fibrillation) Priority: Primary Status: Acute Comments: Presented as direct admit for sotalol initiation by Dr. Macario Gonzalez. D/t occasional bradycardia seen, metoprolol and digoxin discontinued. Sotalol 40 mg BID started. Prior to 5th dose pt went back into A-Fib, Increased Sotalol to 80mg BID. Has received 4 increased doses. QTc remains <500ms. He is currently on xarelto uninterrupted for one month. Needs to be monitored to for 5 doses of increased dose. Was A-Fib overnight, PAF this AM, currently SR. Creatinine increased to 1.31. Creatinine clearance 115. Continue Sotalol. Plan for discharge home this evening after 5th dose. Check BMP as outpt in 1 week. Follow-up in 2-[address] Macario Gonzalez. (2) CAD (coronary artery disease) Priority: Secondary Status: Chronic Comments: S/p multiple PCI in the past. No cardiac symptoms currently. Most recent TTE 04/2016 LVEF 55-60%. Mildly dilated left ventricle. Not all segments were well visualized, but overall LV function appeared normal. Indeterminate diastolic function. Mildly dilated right ventricle with normal appearing function. . Moderate to severely dilated left atrium. Mild aortic regurgitation. No evidence of pulmonary hypertension identified. Continue asa, statin, and bb. Qualifiers: Coronary Disease-Associated Artery/Lesion type: [place] artery [place] vs. transplanted heart: [place] heart Associated angina: without angina Qualified Code(s): I25.10 - Atherosclerotic heart disease of [place] coronary artery without angina pectoris (3) THUY (acute kidney injury) Priority: Secondary Status: Acute Comments: Creatinine went from 0.99 to 1.31. Mild THUY. Creatinine clearance 115, continue Sotalol. Check BMP in 1 week. - Discharge Medications Prescriptions: Sotalol [Betapace] 80 mg PO Q12H #60 tablet Home Medications: Albuterol Sulfate [Albuterol Inhaler] 2 puff IH Q4HR PRN 10/19/14 [History] Alprazolam [Xanax] 0.5 mg PO BID 10/19/14 [History] Aspirin Enteric Coated [Aspirin EC] 81 mg PO DAILY 10/19/14 [History] Docusate [Colace] 100 mg PO BID 10/19/14 [History] Dutasteride [Avodart] 0.5 mg PO DAILY 10/19/14 [History] Esomeprazole Magnesium [Nexium] 40 mg PO DAILY 10/19/14 [History] Gabapentin [Neurontin] 600 mg PO TID 10/19/14 [History] Ipratropium/Albuterol Neb [Duoneb] 3 ml IH Q4HR 10/19/14 [History] Lidocaine Jelly 2% 1 appl MM ONCE 10/19/14 [History] Metformin [Glucophage] 1,000 mg PO BIDWM 10/19/14 [History] Montelukast [Singulair] 10 mg PO DAILY 10/19/14 [History] Nitroglycerin 0.4 mg SL Q5MIN 10/19/14 [History] OxyCODONE/APAP 10/325 [Percocet 10/325] 1 mg PO Q6-8H PRN 10/19/14 [History] Roflumilast [Daliresp] 500 mcg PO DAILY 10/19/14 [History] Rosuvastatin [Crestor] 40 mg PO HS 10/19/14 [History] SitaGLIPtin [Januvia] 100 mg PO DAILY 10/19/14 [History] Celecoxib [Celebrex] 200 mg PO BID 08/30/15 [History] Ranolazine [Ranexa] 500 mg PO BID 08/30/15 [History] Fluticasone Propionate Nasal [Flonase] 1 spray NS BID 01/24/16 [History] Fluticasone/Salmeterol [Advair 500-50 Diskus] 1 puff IH BID 01/24/16 [History] Varenicline Tartrate [Chantix] 1 mg PO BID 01/24/16 [History] Cyclobenzaprine [Flexeril] 10 mg PO TID 06/29/16 [History] Furosemide [Lasix] 40 mg PO DAILY 06/29/16 [History] Insulin DETEMIR [Levemir Flextouch] 20 unit SQ HS 06/29/16 [History] Potassium Chloride [Klor-Con 10] 10 meq PO DAILY 06/29/16 [History] Rivaroxaban [Xarelto] 20 mg PO DAILY 06/29/16 [History] Umeclidinium [place] [Incruse Ellipta] 1 puff IH DAILY 06/29/16 [History] Sotalol [Betapace] 80 mg PO Q12H #60 tablet 07/03/16 [Rx] Allergies/Adverse Reactions: Allergies ciprofloxacin [From Cipro] Allergy (Verified 01/24/16 12:10) Hives levofloxacin [From Levaquin] Allergy (Verified 01/24/16 12:10) Blister sulfamethoxazole [From Bactrim] Allergy (Verified 01/24/16 12:10) Hives trimethoprim [From Bactrim] Allergy (Verified 01/24/16 12:10) Hives Procedures/tests Complete & Pending: Procedures Performed prior 72 hours Category Date Time Status ECG 12 lead ECG [ECG] AM 0600 Y 07/02/16 06:00 Ordered Date of admission: 06/29/16 11:27 Primary care physician: Viridiana Garcia CNP Consults: 06/29/16 17:05 Consult to Wound Care [CONS] Routine Reason for Consult: BLE leg wraps applied by wound care [facility] one week ago. Please help manage. Thanks Call Completed: No Discharging clinician: Jorge Bertrand Anticipated date of discharge: 07/03/16 - Patient Status Disposition: Home, Self-Care Condition: Good - Discharge Instructions Instructions: Sotalol (By mouth), Atrial Fibrillation (GEN) Follow Up With: Viriidana Garcia CNP [Primary Care Provider] - 07/09/16 8:45 am Macario Gonzalez MD [Partnered Physician] - 07/21/16 12:45 pm - Diet and Activity Activity: increase activity as tolerated Diet: advance to your usual diet - Hospital Course Hospital course: Mr. Pugh is a 65 year old male that presented as direct admit for sotalol initiation by Dr. Macario Gonzalez. D/t occasional bradycardia seen, metoprolol and digoxin discontinued. Sotalol 40 mg BID started. Prior to 5th dose pt went back into A-Fib, Increased Sotalol to 80mg BID. Has received 4 increased doses. QTc remains <500ms. He is currently on xarelto uninterrupted for one month. Needs to be monitored to for 5 doses of increased dose. Was A-Fib overnight, PAF this AM, currently SR. Creatinine increased to 1.31. Creatinine clearance 115. Continue Sotalol. Plan for discharge home this evening after 5th dose. Check BMP as outpt in 1 week. Follow-up in 2-[address] Macario Gonzalez. - Time Spent with Patient Total time spent providing and/or coordinating discharge services: 30 minutes Physical Examination Vital Signs, Last 4 Hours Temp Pulse Resp BP Pulse Ox 07/03/16 08:53 16 98 07/03/16 07:48 98.0 F 88 16 107/83 95 07/03/16 07:28 94 Vital Signs Temp Pulse Resp BP Pulse Ox 07/03/16 08:53 16 98 07/03/16 07:48 98.0 F 88 16 107/83 95 07/03/16 07:28 94 07/03/16 04:55 97.4 F L 98 16 119/90 93 07/03/16 04:02 18 93 07/02/16 23:39 16 98 07/02/16 23:29 97.7 F 106 16 98/70 92 07/02/16 20:09 16 94 07/02/16 19:49 98.4 F 92 18 113/67 95 07/02/16 19:40 95 07/02/16 16:42 98.4 F 95 22 108/70 95 07/02/16 15:29 16 94 07/02/16 15:00 95 07/02/16 11:39 105 07/02/16 10:55 97.4 F L 106 16 123/78 94 Intake and Output 07/02/16 07/03/16 07/03/16 23:59 07:59 15:59 Intake Total 100 / 100 830 / 830 360 / 360 Output Total 700 / 700 250 / 250 Balance -600 / -600 580 / 580 360 / 360 Intake: Oral 100 / 100 830 / 830 360 / 360 Output: Urine 700 / 700 250 / 250 Other: Meal Breakfast Percent of Meal Consumed 100% Weight 148.9 kg Blood Glucose* 152 193 Patient Weight 07/03/16 23:59 Weight 148.9 kg General: Conversant, No Apparent Distress HEENT: Atraumatic, Normocephaly, Mucus Membranes Moist Neck: No JVD, Normal carotid pulses Cardiac: Reg Rate and Rhythm, Normal S1 and S2, No Murmur Lungs: Normal Breath Sounds, No Wheeze, Rales, Rhonchi Neuro: Alert and responsive, No focal deficits noted Abdomen: Soft, Non-Tender Skin: No rashes noted on visualized skin Musculoskeletal: No Chest Wall Tenderness Extremities: No Clubbing, No Cyanosis, No Edema, Normal Pulses - VTE Reasons for not Prescribing Prophylaxis: Not indicated-Anticoagulated or INR therapeutic
--- NOTE | 2016-07-04 17:35 | Electrocardiograph Report ---
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
--- NOTE | 2016-07-04 17:50 | Electrocardiograph Report ---
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
--- NOTE | 2016-07-05 09:02 | Electrocardiograph Report ---
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
== END 2016-07-03 16:30 | disposition home or self-care (01) | DRG 309 ==
LOC: 2NNU 11:27
PROVIDERS: ADMIT Nurse Practitioner Family; ATTEND Internal Medicine Cardiovascular Disease

== ENCOUNTER 2019-10-16 09:00 | Inpatient (IN) ==
[2019-10-16] MEDS ORDERED: *HR* OxyCODONE/APAP 10/325 TABLET PO PRN (11:39)
[2019-10-16] MEDS ORDERED: Ipratropium/Albuterol Neb 3 ML IH PRN (11:39)
[2019-10-16] MEDS ORDERED: Nitroglycerin 0.4 MG TAB.SUBL SL PRN (11:39)
[2019-10-16] MEDS ORDERED: Fluticasone Propionate Nasal 50 MCG/SPRAY BOTTLE NS PRN (11:39)
[2019-10-16] MEDS: Gabapentin 300 MG CAPSULE PO SCH ×2 (15:31→21:38)
[2019-10-16] MEDS: *HR* Metformin 500 MG TABLET PO SCH (16:56)
[2019-10-16] MEDS: Budesonide/Formoterol 80/4.5 1 PUFF INH IH SCH (19:48)
[2019-10-16] MEDS: ALPRAZolam 0.5 MG TABLET PO SCH (21:38)
[2019-10-16] MEDS: Melatonin 3 MG TABLET PO SCH (21:38)
[2019-10-16] MEDS: Ranolazine 500 MG TAB.ER.12H PO SCH (21:38)
[2019-10-16] MEDS: Celecoxib 200 MG CAPSULE PO SCH (23:55)
[2019-10-17] MEDS: Budesonide/Formoterol 80/4.5 1 PUFF INH IH SCH ×2 (07:45→20:37)
[2019-10-17] MEDS: Furosemide 40 MG TABLET PO SCH (08:32)
[2019-10-17] MEDS: *HR* SitaGLIPtin 100 MG TABLET PO SCH (08:32)
[2019-10-17] MEDS: Ranolazine 500 MG TAB.ER.12H PO SCH ×2 (08:32→21:33)
[2019-10-17] MEDS: ALPRAZolam 0.5 MG TABLET PO SCH ×2 (08:32→21:33)
[2019-10-17] MEDS: Celecoxib 200 MG CAPSULE PO SCH ×2 (08:32→21:33)
[2019-10-17] MEDS: Finasteride 5 MG TABLET PO SCH (08:32)
[2019-10-17] MEDS: Gabapentin 300 MG CAPSULE PO SCH ×3 (08:32→21:34)
[2019-10-17] MEDS: Aspirin Enteric Coated 81 MG Tablet PO SCH (08:32)
[2019-10-17] MEDS: *HR* Metformin 500 MG TABLET PO SCH ×2 (08:33→15:20)
[2019-10-17] MEDS: Magnesium Oxide 400 MG TABLET PO SCH (08:33)
[2019-10-17] MEDS ORDERED: (Roflumilast [Daliresp] 500 MCG) PO SCH (09:00)
[2019-10-17] MEDS ORDERED: *HR* Rivaroxaban 10 MG TABLET PO SCH (17:00)
[2019-10-17] MEDS: Melatonin 3 MG TABLET PO SCH (21:33)
[2019-10-18] MEDS: *HR* SitaGLIPtin 100 MG TABLET PO SCH (07:20)
[2019-10-18] MEDS: *HR* Metformin 500 MG TABLET PO SCH (07:20)
[2019-10-18] MEDS: Finasteride 5 MG TABLET PO SCH (07:21)
[2019-10-18] MEDS: Ranolazine 500 MG TAB.ER.12H PO SCH (07:21)
[2019-10-18] MEDS: ALPRAZolam 0.5 MG TABLET PO SCH (07:21)
[2019-10-18] MEDS: Celecoxib 200 MG CAPSULE PO SCH (07:21)
[2019-10-18] MEDS: Aspirin Enteric Coated 81 MG Tablet PO SCH (07:21)
[2019-10-18] MEDS: Magnesium Oxide 400 MG TABLET PO SCH (07:21)
[2019-10-18] MEDS: Gabapentin 300 MG CAPSULE PO SCH (07:21)
[2019-10-18] MEDS: Furosemide 40 MG TABLET PO SCH (07:27)
[2019-10-18] MEDS: Budesonide/Formoterol 80/4.5 1 PUFF INH IH SCH (07:35)
[2019-10-18 10:53] VITALS: BP 133/77
== END 2019-10-18 13:02 | disposition home or self-care (01) | DRG 310 ==
LOC: 2ANU
PROVIDERS: ADMIT Internal Medicine Clinical Cardiac Electrophysiology; ATTEND Internal Medicine Clinical Cardiac Electrophysiology